=== PATIENT | male | born 1935 | race Two or more races ===

== ENCOUNTER 2018-11-01 11:23 | Emergency (ER) | payer MEDICARE ==
[~2018-11-01] VITALS: Ht 172.7 cm; Wt 80.3 kg
[2018-11-01] MEDS ORDERED: SODIUM CHLORIDE 0.9% 1,000 ML IV ONE (11:38)
[2018-11-01 11:55] LABS: BASOPHILS % 0.5 % (0.0-2.0); HEMATOCRIT. 30.7 % (42.0-52.0); LYMPHOCYTES % 12.3 % (20.0-50.0); MEAN CORPUSCULAR HEMOGLOBIN 25.7 pg (28.0-32.0); MEAN CORPUSCULAR VOLUME 79.1 fL (80.0-94.0); MEAN PLATELET VOLUME 9.8 fl (7.4-10.4); MONOCYTES % 11.4 % (2.0-8.0); NEUTROPHILS % 70.8 % (40.0-76.0); PLATELET 251 x1000/uL (130-400); RED BLOOD CELL COUNT 3.88 mill/uL (4.7-6.1); RED CELL DISTRIBUTION WIDTH 14.8 % (11.6-14.6)
[2018-11-01 12:00] LABS: CHLORIDE 105 mEq/L (98-107)
[2018-11-01 12:02] LABS: PARTIAL THROMBOPLASTIN TIME 27.1 sec (23.4-31.0); PROTHROMBIN TIME 10.3 sec (9.6-11.0)
[2018-11-01 12:07] LABS: ETHANOL BLOOD < 10 mg/dL
[2018-11-01 12:10] LABS: LDL CHOLESTEROL 55 mg/dL (5-100)
[2018-11-01 12:12] LABS: CREATINE KINASE 122 IU/L (39-308)
[2018-11-01 12:15] VITALS: BP 135/53
[2018-11-01] MEDS ORDERED: ASPIRIN 325MG EC TABLET PO ONE (12:15)
[2018-11-01] MEDS ORDERED: IOHEXOL-350 100 ML BOTTLE ONE (12:18)
== END 2018-11-01 12:55 | disposition left against medical advice (07) ==
LOC: ER 11:23 → CANBEDREQ 13:29
DX: E11.65 Type 2 diabetes mellitus with hyperglycemia (principal); I10 Essential (primary) hypertension; E78.5 Hyperlipidemia, unspecified; E78.00 Pure hypercholesterolemia, unspecified
CPT/HCPCS: 36415; 70450; 70496; 71045; 80053; 80320; 82550; 82962; 83690; 83721; 83735; 83880; 84484; 85025; 85610; 85730; 93005; 96360; 99284; J7030; Q9967; G0480